=== PATIENT | male | born 1990 | race Caucasian/White ===

== ENCOUNTER 2016-07-28 17:56 | Emergency (ER) | payer OTHER ==
[~2016-07-28 17:56] MED LIST: BACITRACIN30 GM TOP; BACTRIM DS TABL1 TA2 PO; CLEOCIN HCL300 M1 PO; HYDROCODON-ACE1 EAC9 PO; IBUPROFEN PO; KEFLEX500 M1 PO; NO MEDICATIONS; PHENERGAN25 M1 PO; VOLTAREN75 MG PO
== END 2016-07-28 19:16 | disposition home or self-care (01) ==
LOC: SED 17:56
DX: T40.1X1A Poisoning by heroin, accidental (unintentional), initial encounter (principal); Z79.899 Other long term (current) drug therapy
CPT/HCPCS: 96374; 96375; 99283; J2405

== ENCOUNTER → 2016-08-15 | Outpatient (CLI) | payer OTHER ==
[2016-08-15 19:50] LABS: BASOPHIL# 0.1 X10e3 (0-0.3); BASOPHIL% 0.6 % (0-2.5); EOSINOPHIL# 0.1 X10e3 (0-0.7); EOSINOPHIL% 1.2 % (0.0-7.0); HEMOGLOBIN 14.3 gm/dL (13.0-16.0); LYMPHOCYTE# 2.9 X10e3 (1.0-3.5); LYMPHOCYTE% 31.6 % (17.0-45.0); MEAN CELL VOLUME 81.5 FL (83-96); MEAN CORPUSCULAR HEMOGLOBIN 27.1 PG (28-34); MEAN CORPUSCULAR HGB CONC 33.2 g/dL (30-36); MEAN PLATELET VOLUME 7.2 FL (6.5-11.5); MONOCYTE# 0.5 X10e3 (0-1.0); MONOCYTE% 5.4 % (3.0-12.0); NEUTROPHIL# 5.6 X10e3 (1.5-7.1); NEUTROPHIL% 61.2 % (40-75); PLATELET COUNT 274 X10e3 (140-420); RED BLOOD COUNT 5.27 X10e (3.90-5.60); RED CELL DISTRIBUTION WIDTH 13.9 % (11.0-15.5); URINE APPEARANCE CLEAR; URINE BILIRUBIN NEG (NEG); URINE BLOOD TRACE-INTACT (NEG); URINE COLOR YELLOW; URINE GLUCOSE NEG (NORM); URINE KETONE NEG (NEG); URINE LEUKOCYTE ESTERASE NEG (NEG); URINE NITRATE NEG (NEG); URINE PH 6.5 (5-8); URINE PROTEIN NEG (NEG); URINE SPECIFIC GRAVITY <=1.005 (1.003-1.035); URINE UROBILINOGEN 0.2 MG/DL (NORM); WHITE BLOOD COUNT 9.2 X10e3 (4.0-10.5)
[2016-08-15 19:51] LABS: DIFF IND NO
[2016-08-15 19:52] LABS: MICRO INDICATED? YES; URINE SOURCE CLEAN CATCH
[2016-08-15 19:53] LABS: CULTURE INDICATED? NO; URINE BACTERIA NEG (NEG); URINE SQUAMOUS EPITHELIAL CELL FEW /[HPF]; URINE WBC NEG /[HPF] (0-5)
[2016-08-15 20:09] LABS: ALBUMIN SERUM 4.7 g/dL (3.5-5.0); ALKALINE PHOSPHATASE 117 U/L (32-92); ALT (SGPT) 29 U/L (10-40); AST (SGOT) 28 U/L (10-42); BILIRUBIN,TOTAL 0.5 mg/dL (0.2-2.0); BLOOD UREA NITROGEN 14 mg/dL (9-23); CALCIUM SERUM 9.4 mg/dL (8.4-10.2); CARBON DIOXIDE 30 mmol/L (22-31); CHLORIDE 102 mmol/L (100-111); CREATININE SERUM 0.8 mg/dL (0.6-1.4); GLOM FILT RATE Estimated ABOVE60 mL/min (>60); GLUCOSE FASTING 85 mg/dL (70-110); POTASSIUM 3.5 mmol/L (3.5-5.1); SODIUM 138 mmol/L (135-145)
[2016-08-21 10:38] LABS: HA AB IGM (HEPPAN) Nonreactive (Nonreactive); HB CORE AB IGM (HEPPAN) Nonreactive (Nonreactive); HB S AG (HEPPAN) Nonreactive (Nonreactive); HEP C AB (HEPPAN) Reactive (Nonreactive)
== END | disposition home or self-care (01) ==
LOC: SLAB 19:21
PROVIDERS: Psychiatry & Neurology Neurology
DX: F11.20 Opioid dependence, uncomplicated (principal)
CPT/HCPCS: 80053; 80074; 81003; 85025; 87522; 87806

== ENCOUNTER 2016-10-15 19:44 | Emergency (ER) | payer OTHER ==
--- NOTE | ~2016-10-15 | US84 ---
[id number] [address] [id number] MR#: [id number] Acc #: [id number] NAME: JORDAN DECKER : 1990 SEX: M STUDY DATE/TIME: 10/15/2016 21:35 UNIT: SED ROOM: STUDY DESCRIPTION: US LE Veins Complete Kun Stdy Attending Physician: Dav Harris M.D. Ordering Physician: Dav Harris M.D. Primary Care Physician: Primary Care Physician No MEDICAL IMAGING REPORT This report is preliminary unless electronic signature is present. EXAM Lower extremity ultrasound for DVT bilateral, 10/15/2016 INDICATION 26-year-old male with lower extremity swelling for 3 days. Bilateral symptoms for 3 days. TECHNIQUE Mccord-scale, color Doppler and spectral analysis of the lower extremities was performed bilaterally. No comparisons. FINDINGS Examination is negative. There is no DVT in either lower extremity. IMPRESSION Negative examination. No DVT in either lower extremity. Dictated by... Russell Pineda M.D. THIS IS AN ELECTRONICALLY VERIFIED REPORT Russell Pineda M.D. at 10/16/2016 7:09 PM BRENDA/ching TD: 10/16/2016 00:12 JOB #: [id number] MEDICAL IMAGING REPORT Page 1 of 1
--- NOTE | ~2016-10-15 | EKG ---
PATIENT: JORDAN DECKER UNIT #: [id number] Ventricular Rate: 112 BPM Atrial Rate: 112 BPM P-R Interval: 132 ms QRS Duration: 104 ms Q-T Interval: 310 ms QTC Calculation(Bezet): 423 ms P Crenshaw: 57 degrees Calculated R Crenshaw: 16 degrees Calculated T Crenshaw: 2 degrees Diagnosis Line: Sinus tachycardia Diagnosis Line: Otherwise normal ECG Diagnosis Line: No previous ECGs available Diagnosis Line: Confirmed by DILMA MARY MD ([id number]) on Diagnosis Line: 10/18/2016 8:50:43 AM INTERPRETING MD: USMAN BRUSH
[2016-10-15] MEDS ORDERED: NO MEDICATIONS (19:51)
[2016-10-15 20:26] LABS: BASOPHIL% 0.3 % (0-2.5); EOSINOPHIL# 0.2 X10e3 (0-0.7); EOSINOPHIL% 2.5 % (0.0-7.0); HEMATOCRIT 36.2 % (38.0-50.0); HEMOGLOBIN 12.4 gm/dL (13.0-16.0); LYMPHOCYTE# 3.1 X10e3 (1.0-3.5); LYMPHOCYTE% 38.6 % (17.0-45.0); MEAN CELL VOLUME 79.1 FL (83-96); MEAN CORPUSCULAR HEMOGLOBIN 27.2 PG (28-34); MEAN CORPUSCULAR HGB CONC 34.4 g/dL (30-36); MEAN PLATELET VOLUME 7.2 FL (6.5-11.5); MONOCYTE# 0.5 X10e3 (0-1.0); MONOCYTE% 5.9 % (3.0-12.0); NEUTROPHIL# 4.2 X10e3 (1.5-7.1); NEUTROPHIL% 52.7 % (40-75); PLATELET COUNT 276 X10e3 (140-420); RED BLOOD COUNT 4.58 X10e (3.90-5.60); RED CELL DISTRIBUTION WIDTH 13.7 % (11.0-15.5)
[2016-10-15 20:27] LABS: DIFF IND NO
[2016-10-15 20:42] LABS: POC - CKMB <1.0 ng/mL (0.0-7.9); POC - TROPONIN <0.05 ng/mL (<=0.05)
[2016-10-15 20:48] LABS: ALBUMIN SERUM 4.1 g/dL (3.5-5.0); BILIRUBIN, DIRECT 0.1 mg/dL (0.0-0.2); BILIRUBIN,INDIRECT 0.3 mg/dL (0.0-0.9); BILIRUBIN,TOTAL 0.4 mg/dL (0.2-2.0); BUN/CREATININE RATIO 17.5; CALCIUM SERUM 8.7 mg/dL (8.4-10.2); CREATININE SERUM 0.8 mg/dL (0.6-1.4); GLOM FILT RATE Estimated 123.3 mL/min (>60)
[2016-10-15 21:31] LABS: URINE SOURCE CLEAN CATCH
[2016-10-15 21:34] LABS: URINE APPEARANCE CLEAR; URINE BLOOD NEG (NEG); URINE COLOR DK YELLOW; URINE GLUCOSE NEG (NORM); URINE KETONE 1+ (NEG); URINE LEUKOCYTE ESTERASE NEG (NEG); URINE NITRATE NEG (NEG); URINE PROTEIN 1+ (NEG); URINE SPECIFIC GRAVITY 1.025 (1.003-1.035)
[2016-10-15 21:35] LABS: MICRO INDICATED? NO; URINE BILIRUBIN NEG (NEG)
[2016-10-15 21:44] LABS: AMPHETAMINE POS (NEG); BARBITURATES NEG (NEG); BENZODIAZEPINES POS (NEG); COCAINE NEG (NEG); MARIJUANA POS (NEG); OPIATES POS (NEG); TRICYCLIC ANTIDEPRESSANTS NEG (NEG); U METHADONE NEG (NEG)
== END 2016-10-15 22:22 | disposition left against medical advice (07) ==
LOC: SED 19:44
PROVIDERS: Emergency Medicine
DX: L03.115 Cellulitis of right lower limb (principal); R06.02 Shortness of breath; F11.10 Opioid abuse, uncomplicated; F15.10 Other stimulant abuse, uncomplicated; F12.10 Cannabis abuse, uncomplicated
CPT/HCPCS: 36415; 80048; 80076; 80307; 81003; 82550; 82553; 83605; 83880; 84484; 85025; 85379; 87040; 93005; 93970; 96361; 96374; 99284; J3370